=== PATIENT | male | born 1960 | race Caucasian/White ===

== ENCOUNTER 2023-03-09 07:49 | Outpatient (CLI) | payer OTHER, SELFPAY | END 2023-03-09 07:50 | disposition home or self-care (01) | LOC: WOUND 07:51 | PROVIDERS: PCP Family Medicine; Visit Provider Physician Assistant | DX: I87.2 Venous insufficiency (chronic) (peripheral) (principal); L97.318 Non-pressure chronic ulcer of right ankle with other specified severity; I50.22 Chronic systolic (congestive) heart failure; Z95.0 Presence of cardiac pacemaker | CPT/HCPCS: 97597; 97598; G0463 ==

== ENCOUNTER 2023-03-16 09:51 | Outpatient (CLI) | payer OTHER, SELFPAY | END 2023-03-16 09:52 | disposition home or self-care (01) | LOC: WOUND 09:51 | PROVIDERS: PCP Family Medicine; Visit Provider Nurse Practitioner Family | DX: G60.3 Idiopathic progressive neuropathy (principal); L97.312 Non-pressure chronic ulcer of right ankle with fat layer exposed; I87.2 Venous insufficiency (chronic) (peripheral) | CPT/HCPCS: 11042; 11045 ==

== ENCOUNTER 2023-03-18 15:01 | Outpatient (CLI) | payer OTHER, SELFPAY | END 2023-03-18 15:02 | disposition home or self-care (01) | LOC: WOUND 15:01 | PROVIDERS: PCP Family Medicine; Visit Provider Nurse Practitioner Family | DX: I87.2 Venous insufficiency (chronic) (peripheral) (principal); L97.318 Non-pressure chronic ulcer of right ankle with other specified severity | CPT/HCPCS: G0463 ==

== ENCOUNTER 2023-03-23 14:52 | Outpatient (CLI) | payer OTHER, SELFPAY | END 2023-03-23 14:53 | disposition home or self-care (01) | LOC: WOUND 14:52 | PROVIDERS: PCP Family Medicine; Visit Provider Physician Assistant | DX: G60.3 Idiopathic progressive neuropathy (principal); I87.2 Venous insufficiency (chronic) (peripheral); L97.318 Non-pressure chronic ulcer of right ankle with other specified severity | CPT/HCPCS: 97597; 97598 ==

== ENCOUNTER 2023-03-25 15:11 | Outpatient (CLI) | payer OTHER, SELFPAY | END 2023-03-25 15:12 | disposition home or self-care (01) | LOC: WOUND 15:11 | PROVIDERS: PCP Family Medicine; Visit Provider Nurse Practitioner Family | DX: G60.3 Idiopathic progressive neuropathy (principal); I87.2 Venous insufficiency (chronic) (peripheral); L97.312 Non-pressure chronic ulcer of right ankle with fat layer exposed | CPT/HCPCS: G0463 ==

== ENCOUNTER 2023-03-30 15:09 | Outpatient (CLI) | payer OTHER, SELFPAY | END 2023-03-30 15:10 | disposition home or self-care (01) | LOC: WOUND 15:09 | PROVIDERS: PCP Family Medicine; Visit Provider Nurse Practitioner Family | DX: G60.3 Idiopathic progressive neuropathy (principal); L97.312 Non-pressure chronic ulcer of right ankle with fat layer exposed; I87.2 Venous insufficiency (chronic) (peripheral) | CPT/HCPCS: 11042 ==

== ENCOUNTER 2023-04-06 13:51 | Outpatient (CLI) | payer OTHER, SELFPAY | END 2023-04-06 13:52 | disposition home or self-care (01) | LOC: WOUND 13:51 | PROVIDERS: PCP Family Medicine; Visit Provider Physician Assistant | DX: G60.3 Idiopathic progressive neuropathy (principal); L97.312 Non-pressure chronic ulcer of right ankle with fat layer exposed; I87.2 Venous insufficiency (chronic) (peripheral) | CPT/HCPCS: 11042 ==

== ENCOUNTER 2023-04-13 12:18 | Outpatient (CLI) | payer OTHER, SELFPAY | END 2023-04-13 12:19 | disposition home or self-care (01) | LOC: WOUND 12:18 | PROVIDERS: PCP Family Medicine; Visit Provider Nurse Practitioner Family | DX: G60.3 Idiopathic progressive neuropathy (principal); L97.312 Non-pressure chronic ulcer of right ankle with fat layer exposed; I87.2 Venous insufficiency (chronic) (peripheral) | CPT/HCPCS: 11042 ==

== ENCOUNTER 2023-04-20 09:56 | Outpatient (CLI) | payer OTHER, SELFPAY | END 2023-04-20 09:57 | disposition home or self-care (01) | PROVIDERS: PCP Family Medicine; Visit Provider Nurse Practitioner Family | DX: G60.3 Idiopathic progressive neuropathy (principal); L97.318 Non-pressure chronic ulcer of right ankle with other specified severity; I87.2 Venous insufficiency (chronic) (peripheral) | CPT/HCPCS: 11042 ==

== ENCOUNTER 2023-04-27 15:10 | Outpatient (CLI) | payer OTHER, SELFPAY | END 2023-04-27 15:11 | disposition home or self-care (01) | LOC: WOUND 15:10 | PROVIDERS: PCP Family Medicine; Visit Provider Nurse Practitioner Family | DX: G60.3 Idiopathic progressive neuropathy (principal); L97.312 Non-pressure chronic ulcer of right ankle with fat layer exposed; I87.2 Venous insufficiency (chronic) (peripheral) | CPT/HCPCS: 11042 ==

== ENCOUNTER 2023-05-04 10:16 | Outpatient (CLI) | payer OTHER, SELFPAY | END 2023-05-04 10:17 | disposition home or self-care (01) | LOC: WOUND 10:16 | PROVIDERS: PCP Family Medicine; Visit Provider Physician Assistant | DX: G60.3 Idiopathic progressive neuropathy (principal); I87.2 Venous insufficiency (chronic) (peripheral); L97.312 Non-pressure chronic ulcer of right ankle with fat layer exposed | CPT/HCPCS: 97597 ==

== ENCOUNTER 2023-05-11 08:47 | Outpatient (CLI) | payer OTHER, SELFPAY | END 2023-05-11 08:48 | disposition home or self-care (01) | LOC: WOUND 08:47 | PROVIDERS: PCP Family Medicine; Visit Provider Nurse Practitioner Family | DX: G60.3 Idiopathic progressive neuropathy (principal); I87.311 Chronic venous hypertension (idiopathic) with ulcer of right lower extremity; L97.318 Non-pressure chronic ulcer of right ankle with other specified severity | CPT/HCPCS: 11042 ==

== ENCOUNTER 2023-05-18 15:17 | Outpatient (CLI) | payer OTHER, SELFPAY | END 2023-05-18 15:18 | disposition home or self-care (01) | LOC: WOUND 15:17 | PROVIDERS: PCP Family Medicine; Visit Provider Nurse Practitioner Family | DX: I87.311 Chronic venous hypertension (idiopathic) with ulcer of right lower extremity (principal); I87.2 Venous insufficiency (chronic) (peripheral); L97.318 Non-pressure chronic ulcer of right ankle with other specified severity; G60.3 Idiopathic progressive neuropathy; S80.811A Abrasion, right lower leg, initial encounter; Z72.0 Tobacco use | CPT/HCPCS: 11042; 97602; G0463 ==

== ENCOUNTER 2023-05-25 10:30 | Outpatient (CLI) | payer OTHER, SELFPAY | END 2023-05-25 10:31 | disposition home or self-care (01) | LOC: WOUND 10:30 | PROVIDERS: PCP Family Medicine; Visit Provider Nurse Practitioner Family | DX: I87.311 Chronic venous hypertension (idiopathic) with ulcer of right lower extremity (principal); I87.2 Venous insufficiency (chronic) (peripheral); L97.318 Non-pressure chronic ulcer of right ankle with other specified severity; G60.3 Idiopathic progressive neuropathy | CPT/HCPCS: 11042 ==

== ENCOUNTER 2023-06-01 08:47 | Outpatient (CLI) | payer OTHER, SELFPAY | END 2023-06-01 08:48 | disposition home or self-care (01) | LOC: WOUND 08:47 | PROVIDERS: PCP Family Medicine; Visit Provider Nurse Practitioner Family | DX: I87.311 Chronic venous hypertension (idiopathic) with ulcer of right lower extremity (principal); I87.2 Venous insufficiency (chronic) (peripheral); L97.312 Non-pressure chronic ulcer of right ankle with fat layer exposed; S80.811A Abrasion, right lower leg, initial encounter | CPT/HCPCS: 11042; 97597 ==

== ENCOUNTER 2023-06-08 08:55 | Outpatient (CLI) | payer OTHER, SELFPAY | END 2023-06-08 08:56 | disposition home or self-care (01) | LOC: WOUND 08:55 | PROVIDERS: PCP Family Medicine; Visit Provider Nurse Practitioner Family | DX: I87.311 Chronic venous hypertension (idiopathic) with ulcer of right lower extremity (principal); I87.2 Venous insufficiency (chronic) (peripheral); L97.312 Non-pressure chronic ulcer of right ankle with fat layer exposed | CPT/HCPCS: 11042 ==

== ENCOUNTER 2023-06-15 11:06 | Outpatient (CLI) | payer OTHER, SELFPAY | END 2023-06-15 11:07 | disposition home or self-care (01) | LOC: WOUND 11:06 | PROVIDERS: PCP Family Medicine; Visit Provider Nurse Practitioner Family | DX: I87.311 Chronic venous hypertension (idiopathic) with ulcer of right lower extremity (principal); I87.2 Venous insufficiency (chronic) (peripheral); L97.312 Non-pressure chronic ulcer of right ankle with fat layer exposed; G60.3 Idiopathic progressive neuropathy; S91.311A Laceration without foreign body, right foot, initial encounter | CPT/HCPCS: 11042; G0463 ==

== ENCOUNTER 2023-06-22 11:05 | Outpatient (CLI) | payer OTHER, SELFPAY | END 2023-06-22 11:06 | disposition home or self-care (01) | LOC: WOUND 11:06 | PROVIDERS: PCP Family Medicine; Visit Provider Nurse Practitioner Family | DX: I87.311 Chronic venous hypertension (idiopathic) with ulcer of right lower extremity (principal); I87.2 Venous insufficiency (chronic) (peripheral); G60.3 Idiopathic progressive neuropathy; L97.312 Non-pressure chronic ulcer of right ankle with fat layer exposed | CPT/HCPCS: 11042 ==

== ENCOUNTER 2023-06-29 08:43 | Outpatient (CLI) | payer OTHER, SELFPAY | END 2023-06-29 08:44 | disposition home or self-care (01) | LOC: WOUND 08:44 | PROVIDERS: PCP Family Medicine; Visit Provider Nurse Practitioner Family | DX: I87.311 Chronic venous hypertension (idiopathic) with ulcer of right lower extremity (principal); I87.2 Venous insufficiency (chronic) (peripheral); L97.312 Non-pressure chronic ulcer of right ankle with fat layer exposed; G60.3 Idiopathic progressive neuropathy | CPT/HCPCS: 11042 ==

== ENCOUNTER 2023-07-06 07:47 | Outpatient (CLI) | payer OTHER, SELFPAY | END 2023-07-06 07:48 | disposition home or self-care (01) | LOC: WOUND 07:47 | PROVIDERS: PCP Family Medicine; Visit Provider Family Medicine | DX: I87.311 Chronic venous hypertension (idiopathic) with ulcer of right lower extremity (principal); I87.2 Venous insufficiency (chronic) (peripheral); L97.312 Non-pressure chronic ulcer of right ankle with fat layer exposed | CPT/HCPCS: 11042 ==

== ENCOUNTER 2023-07-13 08:04 | Outpatient (CLI) | payer OTHER, SELFPAY | END 2023-07-13 08:05 | disposition home or self-care (01) | LOC: WOUND 08:04 | PROVIDERS: PCP Family Medicine; Visit Provider Nurse Practitioner Family | DX: I87.311 Chronic venous hypertension (idiopathic) with ulcer of right lower extremity (principal); I87.2 Venous insufficiency (chronic) (peripheral); L97.312 Non-pressure chronic ulcer of right ankle with fat layer exposed | CPT/HCPCS: 11042 ==

== ENCOUNTER 2023-07-20 08:12 | Outpatient (CLI) | payer OTHER, SELFPAY | END 2023-07-20 08:13 | disposition home or self-care (01) | LOC: WOUND 08:12 | PROVIDERS: PCP Family Medicine; Visit Provider Nurse Practitioner Family | DX: I87.311 Chronic venous hypertension (idiopathic) with ulcer of right lower extremity (principal); I87.2 Venous insufficiency (chronic) (peripheral); L97.312 Non-pressure chronic ulcer of right ankle with fat layer exposed | CPT/HCPCS: 11042 ==

== ENCOUNTER 2023-07-27 08:15 | Outpatient (CLI) | payer OTHER, SELFPAY | END 2023-07-27 08:16 | disposition home or self-care (01) | LOC: WOUND 08:15 | PROVIDERS: PCP Family Medicine; Visit Provider Nurse Practitioner Family | DX: I87.311 Chronic venous hypertension (idiopathic) with ulcer of right lower extremity (principal); I87.2 Venous insufficiency (chronic) (peripheral); L97.312 Non-pressure chronic ulcer of right ankle with fat layer exposed | CPT/HCPCS: 11042 ==

== ENCOUNTER 2023-08-03 08:00 | Outpatient (CLI) | payer OTHER, SELFPAY | END 2023-08-03 08:01 | disposition home or self-care (01) | LOC: WOUND 08:00 | PROVIDERS: PCP Family Medicine; Visit Provider Nurse Practitioner Family | DX: I87.311 Chronic venous hypertension (idiopathic) with ulcer of right lower extremity (principal); I87.2 Venous insufficiency (chronic) (peripheral); L97.312 Non-pressure chronic ulcer of right ankle with fat layer exposed | CPT/HCPCS: 11042 ==

== ENCOUNTER 2023-08-10 08:17 | Outpatient (CLI) | payer OTHER, SELFPAY | END 2023-08-10 08:18 | disposition home or self-care (01) | LOC: WOUND 08:17 | PROVIDERS: PCP Family Medicine; Visit Provider Nurse Practitioner Family | DX: I87.311 Chronic venous hypertension (idiopathic) with ulcer of right lower extremity (principal); I87.2 Venous insufficiency (chronic) (peripheral); G60.3 Idiopathic progressive neuropathy; L97.312 Non-pressure chronic ulcer of right ankle with fat layer exposed | CPT/HCPCS: 11042 ==

== ENCOUNTER 2023-08-17 08:22 | Outpatient (CLI) | payer OTHER, SELFPAY | END 2023-08-17 08:23 | disposition home or self-care (01) | LOC: WOUND 08:22 | PROVIDERS: PCP Family Medicine; Visit Provider Nurse Practitioner Family | DX: I87.311 Chronic venous hypertension (idiopathic) with ulcer of right lower extremity (principal); I87.2 Venous insufficiency (chronic) (peripheral); L97.312 Non-pressure chronic ulcer of right ankle with fat layer exposed | CPT/HCPCS: 11042 ==

== ENCOUNTER 2023-08-24 08:13 | Outpatient (CLI) | payer OTHER, SELFPAY | END 2023-08-24 08:14 | disposition home or self-care (01) | LOC: WOUND 08:13 | PROVIDERS: PCP Family Medicine; Visit Provider Nurse Practitioner Family | DX: I87.311 Chronic venous hypertension (idiopathic) with ulcer of right lower extremity (principal); I87.2 Venous insufficiency (chronic) (peripheral); L97.312 Non-pressure chronic ulcer of right ankle with fat layer exposed | CPT/HCPCS: 97597 ==

== ENCOUNTER 2023-08-31 08:14 | Outpatient (CLI) | payer OTHER, SELFPAY | END 2023-08-31 08:15 | disposition home or self-care (01) | LOC: WOUND 08:14 | PROVIDERS: PCP Family Medicine; Visit Provider Nurse Practitioner Family | DX: I87.311 Chronic venous hypertension (idiopathic) with ulcer of right lower extremity (principal); I87.2 Venous insufficiency (chronic) (peripheral); L97.312 Non-pressure chronic ulcer of right ankle with fat layer exposed | CPT/HCPCS: 97597 ==

== ENCOUNTER 2023-09-07 08:11 | Outpatient (CLI) | payer OTHER, SELFPAY | END 2023-09-07 08:12 | disposition home or self-care (01) | LOC: WOUND 08:11 | PROVIDERS: PCP Family Medicine; Visit Provider Nurse Practitioner Family | DX: I87.311 Chronic venous hypertension (idiopathic) with ulcer of right lower extremity (principal); I87.2 Venous insufficiency (chronic) (peripheral); L97.312 Non-pressure chronic ulcer of right ankle with fat layer exposed; G60.3 Idiopathic progressive neuropathy | CPT/HCPCS: 11042 ==

== ENCOUNTER 2023-09-14 08:14 | Outpatient (CLI) | payer OTHER, SELFPAY | END 2023-09-14 08:15 | disposition home or self-care (01) | LOC: WOUND 08:14 | PROVIDERS: PCP Family Medicine; Visit Provider Nurse Practitioner Family | DX: I87.311 Chronic venous hypertension (idiopathic) with ulcer of right lower extremity (principal); I87.2 Venous insufficiency (chronic) (peripheral); L97.312 Non-pressure chronic ulcer of right ankle with fat layer exposed | CPT/HCPCS: 11042 ==

== ENCOUNTER 2023-09-21 08:15 | Outpatient (CLI) | payer OTHER, SELFPAY | END 2023-09-21 08:16 | disposition home or self-care (01) | LOC: WOUND 08:15 | PROVIDERS: PCP Family Medicine; Visit Provider Physician Assistant Surgical | DX: I87.311 Chronic venous hypertension (idiopathic) with ulcer of right lower extremity (principal); I87.2 Venous insufficiency (chronic) (peripheral); L97.312 Non-pressure chronic ulcer of right ankle with fat layer exposed | CPT/HCPCS: 11042 ==

== ENCOUNTER 2023-09-28 09:01 | Outpatient (CLI) | payer OTHER, SELFPAY | END 2023-09-28 09:02 | disposition home or self-care (01) | LOC: WOUND 09:01 | PROVIDERS: PCP Family Medicine; Visit Provider Nurse Practitioner Family | DX: I87.311 Chronic venous hypertension (idiopathic) with ulcer of right lower extremity (principal); I87.2 Venous insufficiency (chronic) (peripheral); L97.312 Non-pressure chronic ulcer of right ankle with fat layer exposed | CPT/HCPCS: 11042 ==

== ENCOUNTER 2023-10-05 08:10 | Outpatient (CLI) | payer OTHER, SELFPAY | END 2023-10-05 08:11 | disposition home or self-care (01) | LOC: WOUND 08:10 | PROVIDERS: PCP Family Medicine; Visit Provider Nurse Practitioner Family | DX: I87.311 Chronic venous hypertension (idiopathic) with ulcer of right lower extremity (principal); I87.2 Venous insufficiency (chronic) (peripheral); L97.318 Non-pressure chronic ulcer of right ankle with other specified severity | CPT/HCPCS: 11042 ==

== ENCOUNTER 2023-10-12 08:16 | Outpatient (CLI) | payer OTHER, SELFPAY | END 2023-10-12 08:17 | disposition home or self-care (01) | LOC: WOUND 08:16 | PROVIDERS: PCP Family Medicine; Visit Provider Nurse Practitioner Family | DX: I87.311 Chronic venous hypertension (idiopathic) with ulcer of right lower extremity (principal); I87.2 Venous insufficiency (chronic) (peripheral); L97.312 Non-pressure chronic ulcer of right ankle with fat layer exposed | CPT/HCPCS: 11042 ==

== ENCOUNTER 2023-10-19 08:16 | Outpatient (CLI) | payer OTHER, SELFPAY | END 2023-10-19 08:17 | disposition home or self-care (01) | LOC: WOUND 08:16 | PROVIDERS: PCP Family Medicine; Visit Provider Nurse Practitioner Family | DX: I87.311 Chronic venous hypertension (idiopathic) with ulcer of right lower extremity (principal); I87.2 Venous insufficiency (chronic) (peripheral); L97.312 Non-pressure chronic ulcer of right ankle with fat layer exposed | CPT/HCPCS: 11042 ==

== ENCOUNTER 2023-10-26 08:11 | Outpatient (CLI) | payer OTHER, SELFPAY | END 2023-10-26 08:12 | disposition home or self-care (01) | LOC: WOUND 08:11 | PROVIDERS: PCP Family Medicine; Visit Provider Nurse Practitioner Family | DX: I87.311 Chronic venous hypertension (idiopathic) with ulcer of right lower extremity (principal); I87.2 Venous insufficiency (chronic) (peripheral); L97.312 Non-pressure chronic ulcer of right ankle with fat layer exposed | CPT/HCPCS: 97597 ==

== ENCOUNTER 2023-11-02 08:15 | Outpatient (CLI) | payer OTHER, SELFPAY | END 2023-11-02 08:16 | disposition home or self-care (01) | LOC: WOUND 08:15 | PROVIDERS: PCP Family Medicine; Visit Provider Nurse Practitioner Family | DX: I87.311 Chronic venous hypertension (idiopathic) with ulcer of right lower extremity (principal); I87.2 Venous insufficiency (chronic) (peripheral); L97.312 Non-pressure chronic ulcer of right ankle with fat layer exposed | CPT/HCPCS: 11042 ==

== ENCOUNTER 2023-11-09 08:09 | Outpatient (CLI) | payer OTHER, MEDICARE, BC, SELFPAY | END 2023-11-09 08:10 | disposition home or self-care (01) | PROVIDERS: PCP Family Medicine; Visit Provider Nurse Practitioner Family | DX: I87.311 Chronic venous hypertension (idiopathic) with ulcer of right lower extremity (principal); I87.2 Venous insufficiency (chronic) (peripheral); L97.312 Non-pressure chronic ulcer of right ankle with fat layer exposed | CPT/HCPCS: 11042 ==

== ENCOUNTER 2023-11-16 08:18 | Outpatient (CLI) | payer MEDICARE, BC, SELFPAY | END 2023-11-16 08:19 | disposition home or self-care (01) | LOC: WOUND 08:18 | PROVIDERS: PCP Family Medicine; Visit Provider Nurse Practitioner Family | DX: I87.311 Chronic venous hypertension (idiopathic) with ulcer of right lower extremity (principal); I87.2 Venous insufficiency (chronic) (peripheral); L97.312 Non-pressure chronic ulcer of right ankle with fat layer exposed; G60.3 Idiopathic progressive neuropathy | CPT/HCPCS: 11042 ==

== ENCOUNTER 2023-11-30 08:19 | Outpatient (CLI) | payer OTHER, MEDICARE, BC, SELFPAY | END 2023-11-30 08:20 | disposition home or self-care (01) | LOC: WOUND 08:19 | PROVIDERS: PCP Family Medicine; Visit Provider Nurse Practitioner Family | DX: I87.311 Chronic venous hypertension (idiopathic) with ulcer of right lower extremity (principal); I87.2 Venous insufficiency (chronic) (peripheral); L97.312 Non-pressure chronic ulcer of right ankle with fat layer exposed; G60.3 Idiopathic progressive neuropathy | CPT/HCPCS: 11042 ==

== ENCOUNTER 2023-12-07 08:16 | Outpatient (CLI) | payer MEDICARE, BC, SELFPAY | END 2023-12-07 08:17 | disposition home or self-care (01) | LOC: WOUND 08:16 | PROVIDERS: PCP Family Medicine; Visit Provider Nurse Practitioner Family | DX: I87.311 Chronic venous hypertension (idiopathic) with ulcer of right lower extremity (principal); I87.2 Venous insufficiency (chronic) (peripheral); L97.312 Non-pressure chronic ulcer of right ankle with fat layer exposed | CPT/HCPCS: 11042 ==

== ENCOUNTER 2023-12-14 08:18 | Outpatient (CLI) | payer OTHER, MEDICARE, BC, SELFPAY | END 2023-12-14 08:19 | disposition home or self-care (01) | LOC: WOUND 08:18 | PROVIDERS: PCP Family Medicine; Visit Provider Nurse Practitioner Family | DX: I87.311 Chronic venous hypertension (idiopathic) with ulcer of right lower extremity (principal); I87.2 Venous insufficiency (chronic) (peripheral); L97.312 Non-pressure chronic ulcer of right ankle with fat layer exposed | CPT/HCPCS: 11042 ==

== ENCOUNTER 2023-12-21 08:16 | Outpatient (CLI) | payer MEDICARE, BC, SELFPAY | END 2023-12-21 08:17 | disposition home or self-care (01) | LOC: WOUND 08:16 | PROVIDERS: PCP Family Medicine; Visit Provider Family Medicine | DX: I87.311 Chronic venous hypertension (idiopathic) with ulcer of right lower extremity (principal); I87.2 Venous insufficiency (chronic) (peripheral); L97.312 Non-pressure chronic ulcer of right ankle with fat layer exposed; G60.3 Idiopathic progressive neuropathy | CPT/HCPCS: 11042 ==

== ENCOUNTER 2023-12-28 08:19 | Outpatient (CLI) | payer MEDICARE, BC, SELFPAY | END 2023-12-28 08:20 | disposition home or self-care (01) | LOC: WOUND 08:19 | PROVIDERS: PCP Family Medicine; Visit Provider Nurse Practitioner Family | DX: I87.311 Chronic venous hypertension (idiopathic) with ulcer of right lower extremity (principal); I87.2 Venous insufficiency (chronic) (peripheral); L97.312 Non-pressure chronic ulcer of right ankle with fat layer exposed; G60.3 Idiopathic progressive neuropathy | CPT/HCPCS: 11042 ==

== ENCOUNTER 2024-01-04 08:11 | Outpatient (CLI) | payer MEDICARE, BC, SELFPAY | END 2024-01-04 08:12 | disposition home or self-care (01) | LOC: WOUND 08:12 | PROVIDERS: PCP Family Medicine; Visit Provider Nurse Practitioner Family | DX: I87.311 Chronic venous hypertension (idiopathic) with ulcer of right lower extremity (principal); I87.2 Venous insufficiency (chronic) (peripheral); L97.312 Non-pressure chronic ulcer of right ankle with fat layer exposed; G60.3 Idiopathic progressive neuropathy; Z96.41 Presence of insulin pump (external) (internal) | CPT/HCPCS: 97597 ==

== ENCOUNTER 2024-01-11 08:11 | Outpatient (CLI) | payer MEDICARE, BC, SELFPAY | END 2024-01-11 08:12 | disposition home or self-care (01) | LOC: WOUND 08:11 | PROVIDERS: PCP Family Medicine; Visit Provider Nurse Practitioner Family | DX: I87.311 Chronic venous hypertension (idiopathic) with ulcer of right lower extremity (principal); I87.2 Venous insufficiency (chronic) (peripheral); L97.312 Non-pressure chronic ulcer of right ankle with fat layer exposed | CPT/HCPCS: 11042 ==

== ENCOUNTER 2024-01-18 08:16 | Outpatient (CLI) | payer MEDICARE, BC, SELFPAY | END 2024-01-18 08:17 | disposition home or self-care (01) | PROVIDERS: PCP Family Medicine; Visit Provider Nurse Practitioner Family | DX: I87.311 Chronic venous hypertension (idiopathic) with ulcer of right lower extremity (principal); I87.2 Venous insufficiency (chronic) (peripheral); L97.318 Non-pressure chronic ulcer of right ankle with other specified severity; S91.154A Open bite of right lesser toe(s) without damage to nail, initial encounter; W55.81XA Bitten by other mammals, initial encounter | CPT/HCPCS: 15271; 97602; G0463; Q4101 ==

== ENCOUNTER 2024-01-25 08:10 | Outpatient (CLI) | payer MEDICARE, BC, SELFPAY | END 2024-01-25 08:11 | disposition home or self-care (01) | LOC: WOUND 08:10 | PROVIDERS: PCP Family Medicine; Visit Provider Nurse Practitioner Family | DX: I87.311 Chronic venous hypertension (idiopathic) with ulcer of right lower extremity (principal); I87.2 Venous insufficiency (chronic) (peripheral); L97.312 Non-pressure chronic ulcer of right ankle with fat layer exposed | CPT/HCPCS: 11042 ==

== ENCOUNTER 2024-02-07 08:18 | Outpatient (CLI) | payer MEDICARE, BC, SELFPAY | END 2024-02-07 08:19 | disposition home or self-care (01) | LOC: WOUND 08:18 | PROVIDERS: PCP Family Medicine; Visit Provider Physician Assistant Surgical | DX: I87.311 Chronic venous hypertension (idiopathic) with ulcer of right lower extremity (principal); I87.2 Venous insufficiency (chronic) (peripheral); L97.312 Non-pressure chronic ulcer of right ankle with fat layer exposed | CPT/HCPCS: 11042 ==

== ENCOUNTER 2024-02-15 08:10 | Outpatient (CLI) | payer MEDICARE, BC, SELFPAY | END 2024-02-15 08:11 | disposition home or self-care (01) | LOC: WOUND 08:11 | PROVIDERS: PCP Family Medicine; Visit Provider Nurse Practitioner Family | DX: I87.311 Chronic venous hypertension (idiopathic) with ulcer of right lower extremity (principal); I87.2 Venous insufficiency (chronic) (peripheral); L97.312 Non-pressure chronic ulcer of right ankle with fat layer exposed; G60.3 Idiopathic progressive neuropathy | CPT/HCPCS: 11042 ==

== ENCOUNTER 2024-02-22 08:07 | Outpatient (CLI) | payer MEDICARE, BC, SELFPAY | END 2024-02-22 08:08 | disposition home or self-care (01) | LOC: WOUND 08:07 | PROVIDERS: PCP Family Medicine; Visit Provider Nurse Practitioner Family | DX: I87.311 Chronic venous hypertension (idiopathic) with ulcer of right lower extremity (principal); I87.2 Venous insufficiency (chronic) (peripheral); L97.318 Non-pressure chronic ulcer of right ankle with other specified severity | CPT/HCPCS: 11042 ==

== ENCOUNTER 2024-02-29 12:39 | Outpatient (CLI) | payer MEDICARE, BC, SELFPAY | END 2024-02-29 12:40 | disposition home or self-care (01) | LOC: WOUND 12:39 | PROVIDERS: PCP Family Medicine; Visit Provider Nurse Practitioner Family | DX: I87.311 Chronic venous hypertension (idiopathic) with ulcer of right lower extremity (principal); I87.2 Venous insufficiency (chronic) (peripheral); L97.312 Non-pressure chronic ulcer of right ankle with fat layer exposed; G60.3 Idiopathic progressive neuropathy | CPT/HCPCS: 11042 ==

== ENCOUNTER 2024-03-07 08:08 | Outpatient (CLI) | payer MEDICARE, BC, SELFPAY | END 2024-03-07 08:09 | disposition home or self-care (01) | PROVIDERS: PCP Family Medicine; Visit Provider Nurse Practitioner Family | DX: I87.311 Chronic venous hypertension (idiopathic) with ulcer of right lower extremity (principal); I87.2 Venous insufficiency (chronic) (peripheral); L97.318 Non-pressure chronic ulcer of right ankle with other specified severity; S91.154A Open bite of right lesser toe(s) without damage to nail, initial encounter; W55.81XA Bitten by other mammals, initial encounter | CPT/HCPCS: 15271; 97597; G0463; Q4151 ==

== ENCOUNTER 2024-03-14 08:12 | Outpatient (CLI) | payer MEDICARE, BC, SELFPAY | END 2024-03-14 08:13 | disposition home or self-care (01) | LOC: WOUND 08:12 | PROVIDERS: PCP Family Medicine; Visit Provider Nurse Practitioner Family | DX: I87.311 Chronic venous hypertension (idiopathic) with ulcer of right lower extremity (principal); I87.2 Venous insufficiency (chronic) (peripheral); L97.318 Non-pressure chronic ulcer of right ankle with other specified severity; S91.154A Open bite of right lesser toe(s) without damage to nail, initial encounter; W55.81XA Bitten by other mammals, initial encounter | CPT/HCPCS: 97597 ==

== ENCOUNTER 2024-03-21 08:15 | Outpatient (CLI) | payer MEDICARE, BC, SELFPAY | END 2024-03-21 08:16 | disposition home or self-care (01) | LOC: WOUND 08:15 | PROVIDERS: PCP Family Medicine; Visit Provider Nurse Practitioner Family | DX: I87.311 Chronic venous hypertension (idiopathic) with ulcer of right lower extremity (principal); I87.2 Venous insufficiency (chronic) (peripheral); L97.312 Non-pressure chronic ulcer of right ankle with fat layer exposed; S91.154A Open bite of right lesser toe(s) without damage to nail, initial encounter; W55.81XA Bitten by other mammals, initial encounter | CPT/HCPCS: 97597 ==

== ENCOUNTER 2024-03-28 08:25 | Outpatient (CLI) | payer MEDICARE, BC, SELFPAY | END 2024-03-28 08:26 | disposition home or self-care (01) | LOC: WOUND 08:25 | PROVIDERS: PCP Family Medicine; Visit Provider Nurse Practitioner Family | DX: I87.311 Chronic venous hypertension (idiopathic) with ulcer of right lower extremity (principal); I87.2 Venous insufficiency (chronic) (peripheral); L97.318 Non-pressure chronic ulcer of right ankle with other specified severity; S91.154A Open bite of right lesser toe(s) without damage to nail, initial encounter; W55.81XA Bitten by other mammals, initial encounter | CPT/HCPCS: 97597 ==

== ENCOUNTER 2024-04-04 08:08 | Outpatient (CLI) | payer MEDICARE, BC, SELFPAY | END 2024-04-04 08:09 | disposition home or self-care (01) | LOC: WOUND 08:08 | PROVIDERS: PCP Family Medicine; Visit Provider Nurse Practitioner Family | DX: I87.311 Chronic venous hypertension (idiopathic) with ulcer of right lower extremity (principal); I87.2 Venous insufficiency (chronic) (peripheral); L97.318 Non-pressure chronic ulcer of right ankle with other specified severity; S91.154A Open bite of right lesser toe(s) without damage to nail, initial encounter; W55.81XA Bitten by other mammals, initial encounter | CPT/HCPCS: 97597; 97602 ==

== ENCOUNTER 2024-04-11 08:14 | Outpatient (CLI) | payer MEDICARE, BC, SELFPAY | END 2024-04-11 08:15 | disposition home or self-care (01) | LOC: WOUND 08:14 | PROVIDERS: PCP Family Medicine; Visit Provider Nurse Practitioner Family | DX: I87.311 Chronic venous hypertension (idiopathic) with ulcer of right lower extremity (principal); I87.2 Venous insufficiency (chronic) (peripheral); L97.312 Non-pressure chronic ulcer of right ankle with fat layer exposed | CPT/HCPCS: 97597 ==

== ENCOUNTER 2024-04-18 08:14 | Outpatient (CLI) | payer MEDICARE, BC, SELFPAY | END 2024-04-18 08:15 | disposition home or self-care (01) | PROVIDERS: PCP Family Medicine; Visit Provider Nurse Practitioner Family | DX: I87.311 Chronic venous hypertension (idiopathic) with ulcer of right lower extremity (principal); I87.2 Venous insufficiency (chronic) (peripheral); L97.312 Non-pressure chronic ulcer of right ankle with fat layer exposed | CPT/HCPCS: 97597 ==

== ENCOUNTER 2024-04-25 08:15 | Outpatient (CLI) | payer MEDICARE, BC, SELFPAY | END 2024-04-25 08:16 | disposition home or self-care (01) | LOC: WOUND 08:16 | PROVIDERS: PCP Family Medicine; Visit Provider Nurse Practitioner Family | DX: I87.311 Chronic venous hypertension (idiopathic) with ulcer of right lower extremity (principal); I87.2 Venous insufficiency (chronic) (peripheral); G60.3 Idiopathic progressive neuropathy; L97.312 Non-pressure chronic ulcer of right ankle with fat layer exposed; S81.811A Laceration without foreign body, right lower leg, initial encounter | CPT/HCPCS: 97597; G0463 ==

== ENCOUNTER 2024-05-02 08:08 | Outpatient (CLI) | payer MEDICARE, BC, SELFPAY | END 2024-05-02 08:09 | disposition home or self-care (01) | LOC: WOUND 08:09 | PROVIDERS: PCP Family Medicine; Visit Provider Nurse Practitioner Family | DX: I87.311 Chronic venous hypertension (idiopathic) with ulcer of right lower extremity (principal); I87.2 Venous insufficiency (chronic) (peripheral); G60.3 Idiopathic progressive neuropathy; L97.312 Non-pressure chronic ulcer of right ankle with fat layer exposed | CPT/HCPCS: 11042 ==

== ENCOUNTER 2024-05-09 08:15 | Outpatient (CLI) | payer MEDICARE, BC, SELFPAY | END 2024-05-09 08:16 | disposition home or self-care (01) | LOC: WOUND 08:15 | PROVIDERS: PCP Family Medicine; Visit Provider Family Medicine | DX: I87.311 Chronic venous hypertension (idiopathic) with ulcer of right lower extremity (principal); I87.2 Venous insufficiency (chronic) (peripheral); G60.3 Idiopathic progressive neuropathy; L97.312 Non-pressure chronic ulcer of right ankle with fat layer exposed | CPT/HCPCS: 11042 ==

== ENCOUNTER 2024-05-16 08:11 | Outpatient (CLI) | payer MEDICARE, BC, SELFPAY | END 2024-05-16 08:12 | disposition home or self-care (01) | LOC: WOUND 08:11 | PROVIDERS: PCP Family Medicine; Visit Provider Nurse Practitioner Family | DX: I87.311 Chronic venous hypertension (idiopathic) with ulcer of right lower extremity (principal); I87.2 Venous insufficiency (chronic) (peripheral); I70.233 Atherosclerosis of native arteries of right leg with ulceration of ankle; L97.312 Non-pressure chronic ulcer of right ankle with fat layer exposed; G60.3 Idiopathic progressive neuropathy; I89.0 Lymphedema, not elsewhere classified; Z72.0 Tobacco use | CPT/HCPCS: 97597 ==

== ENCOUNTER 2024-05-23 08:16 | Outpatient (CLI) | payer MEDICARE, BC, SELFPAY | END 2024-05-23 08:17 | disposition home or self-care (01) | LOC: WOUND 08:16 | PROVIDERS: PCP Family Medicine; Visit Provider Nurse Practitioner Family | DX: I87.311 Chronic venous hypertension (idiopathic) with ulcer of right lower extremity (principal); I87.2 Venous insufficiency (chronic) (peripheral); I89.0 Lymphedema, not elsewhere classified; G60.3 Idiopathic progressive neuropathy; L97.312 Non-pressure chronic ulcer of right ankle with fat layer exposed | CPT/HCPCS: 11042 ==

== ENCOUNTER 2024-05-30 08:16 | Outpatient (CLI) | payer MEDICARE, BC, SELFPAY | END 2024-05-30 08:17 | disposition home or self-care (01) | LOC: WOUND 08:16 | PROVIDERS: PCP Family Medicine; Visit Provider Physician Assistant | DX: I87.311 Chronic venous hypertension (idiopathic) with ulcer of right lower extremity (principal); I87.2 Venous insufficiency (chronic) (peripheral); I89.0 Lymphedema, not elsewhere classified; L97.312 Non-pressure chronic ulcer of right ankle with fat layer exposed | CPT/HCPCS: 97597 ==

== ENCOUNTER 2024-06-06 08:19 | Outpatient (CLI) | payer MEDICARE, BC, SELFPAY | END 2024-06-06 08:20 | disposition home or self-care (01) | LOC: WOUND 08:19 | PROVIDERS: PCP Family Medicine; Visit Provider Physician Assistant | DX: I87.311 Chronic venous hypertension (idiopathic) with ulcer of right lower extremity (principal); I87.2 Venous insufficiency (chronic) (peripheral); I89.0 Lymphedema, not elsewhere classified; L97.312 Non-pressure chronic ulcer of right ankle with fat layer exposed; G60.3 Idiopathic progressive neuropathy; Z72.0 Tobacco use | CPT/HCPCS: 97597 ==

== ENCOUNTER 2024-06-13 08:10 | Outpatient (CLI) | payer MEDICARE, BC, SELFPAY | END 2024-06-13 08:11 | disposition home or self-care (01) | LOC: WOUND 08:11 | PROVIDERS: PCP Family Medicine; Visit Provider Nurse Practitioner Family | DX: I87.311 Chronic venous hypertension (idiopathic) with ulcer of right lower extremity (principal); I87.2 Venous insufficiency (chronic) (peripheral); I89.0 Lymphedema, not elsewhere classified; G60.3 Idiopathic progressive neuropathy; L97.312 Non-pressure chronic ulcer of right ankle with fat layer exposed; Z72.0 Tobacco use | CPT/HCPCS: 11042 ==

== ENCOUNTER 2024-06-20 08:11 | Outpatient (CLI) | payer MEDICARE, BC, SELFPAY | END 2024-06-20 08:12 | disposition home or self-care (01) | LOC: WOUND 08:11 | PROVIDERS: PCP Family Medicine; Visit Provider Physician Assistant | DX: I87.311 Chronic venous hypertension (idiopathic) with ulcer of right lower extremity (principal); I87.2 Venous insufficiency (chronic) (peripheral); I70.233 Atherosclerosis of native arteries of right leg with ulceration of ankle; I89.0 Lymphedema, not elsewhere classified; L97.312 Non-pressure chronic ulcer of right ankle with fat layer exposed; Z72.0 Tobacco use | CPT/HCPCS: 97597 ==

== ENCOUNTER 2024-06-27 08:17 | Outpatient (CLI) | payer MEDICARE, BC, SELFPAY | END 2024-06-27 08:18 | disposition home or self-care (01) | LOC: WOUND 08:18 | PROVIDERS: PCP Family Medicine; Visit Provider Nurse Practitioner Family | DX: I87.311 Chronic venous hypertension (idiopathic) with ulcer of right lower extremity (principal); I87.2 Venous insufficiency (chronic) (peripheral); I89.0 Lymphedema, not elsewhere classified; L97.312 Non-pressure chronic ulcer of right ankle with fat layer exposed; Z72.0 Tobacco use | CPT/HCPCS: 97597 ==

== ENCOUNTER 2024-07-04 08:13 | Outpatient (CLI) | payer MEDICARE, BC, SELFPAY | END 2024-07-04 08:14 | disposition home or self-care (01) | LOC: WOUND 08:14 | PROVIDERS: PCP Family Medicine; Visit Provider Family Medicine | DX: I87.311 Chronic venous hypertension (idiopathic) with ulcer of right lower extremity (principal); I87.2 Venous insufficiency (chronic) (peripheral); I89.0 Lymphedema, not elsewhere classified; G60.3 Idiopathic progressive neuropathy; L97.312 Non-pressure chronic ulcer of right ankle with fat layer exposed; Z72.0 Tobacco use | CPT/HCPCS: 11042 ==

== ENCOUNTER 2024-07-11 08:11 | Outpatient (CLI) | payer MEDICARE, BC, SELFPAY | END 2024-07-11 08:12 | disposition home or self-care (01) | LOC: WOUND 08:12 | PROVIDERS: PCP Family Medicine; Visit Provider Nurse Practitioner Family | DX: I87.311 Chronic venous hypertension (idiopathic) with ulcer of right lower extremity (principal); I87.2 Venous insufficiency (chronic) (peripheral); I89.0 Lymphedema, not elsewhere classified; G60.3 Idiopathic progressive neuropathy; L97.312 Non-pressure chronic ulcer of right ankle with fat layer exposed | CPT/HCPCS: 97597 ==

== ENCOUNTER 2024-07-25 08:12 | Outpatient (CLI) | payer MEDICARE, BC, SELFPAY | END 2024-07-25 08:13 | disposition home or self-care (01) | LOC: WOUND 08:12 | PROVIDERS: PCP Family Medicine; Visit Provider Nurse Practitioner Family | DX: I87.311 Chronic venous hypertension (idiopathic) with ulcer of right lower extremity (principal); I87.2 Venous insufficiency (chronic) (peripheral); I89.0 Lymphedema, not elsewhere classified; G60.3 Idiopathic progressive neuropathy; L97.312 Non-pressure chronic ulcer of right ankle with fat layer exposed; Z72.0 Tobacco use | CPT/HCPCS: 11042 ==

== ENCOUNTER 2024-08-01 08:10 | Outpatient (CLI) | payer MEDICARE, BC, SELFPAY | END 2024-08-01 08:11 | disposition home or self-care (01) | LOC: WOUND 08:11 | PROVIDERS: PCP Family Medicine; Visit Provider Physician Assistant | DX: I87.311 Chronic venous hypertension (idiopathic) with ulcer of right lower extremity (principal); I87.2 Venous insufficiency (chronic) (peripheral); I89.0 Lymphedema, not elsewhere classified; G60.3 Idiopathic progressive neuropathy; L97.312 Non-pressure chronic ulcer of right ankle with fat layer exposed | CPT/HCPCS: 97597 ==

== ENCOUNTER 2024-08-08 08:11 | Outpatient (CLI) | payer MEDICARE, BC, SELFPAY | END 2024-08-08 08:12 | disposition home or self-care (01) | LOC: WOUND 08:12 | PROVIDERS: PCP Family Medicine; Visit Provider Physician Assistant | DX: I87.311 Chronic venous hypertension (idiopathic) with ulcer of right lower extremity (principal); I87.2 Venous insufficiency (chronic) (peripheral); G60.3 Idiopathic progressive neuropathy; I89.0 Lymphedema, not elsewhere classified; L97.312 Non-pressure chronic ulcer of right ankle with fat layer exposed | CPT/HCPCS: 97597; G0463 ==

== ENCOUNTER 2024-08-15 08:02 | Outpatient (CLI) | payer MEDICARE, BC, SELFPAY | END 2024-08-15 08:03 | disposition home or self-care (01) | LOC: WOUND 08:02 | PROVIDERS: PCP Family Medicine; Visit Provider Nurse Practitioner Family | DX: I87.311 Chronic venous hypertension (idiopathic) with ulcer of right lower extremity (principal); I87.2 Venous insufficiency (chronic) (peripheral); I89.0 Lymphedema, not elsewhere classified; G60.3 Idiopathic progressive neuropathy; L97.312 Non-pressure chronic ulcer of right ankle with fat layer exposed; Z72.0 Tobacco use | CPT/HCPCS: 15271; 15275; Q4151 ==

== ENCOUNTER 2024-08-22 08:11 | Outpatient (CLI) | payer MEDICARE, BC, SELFPAY | END 2024-08-22 08:12 | disposition home or self-care (01) | LOC: WOUND 08:11 | PROVIDERS: PCP Family Medicine; Visit Provider Nurse Practitioner Family | DX: I87.311 Chronic venous hypertension (idiopathic) with ulcer of right lower extremity (principal); I87.2 Venous insufficiency (chronic) (peripheral); I70.233 Atherosclerosis of native arteries of right leg with ulceration of ankle; I89.0 Lymphedema, not elsewhere classified; G60.3 Idiopathic progressive neuropathy; L97.312 Non-pressure chronic ulcer of right ankle with fat layer exposed; S91.102A Unspecified open wound of left great toe without damage to nail, initial encounter; Z72.0 Tobacco use | CPT/HCPCS: G0463 ==

== ENCOUNTER 2024-08-31 10:33 | Outpatient (CLI) | payer MEDICARE, BC, SELFPAY | END 2024-08-31 10:34 | disposition home or self-care (01) | LOC: WOUND 10:33 | PROVIDERS: PCP Family Medicine; Visit Provider Nurse Practitioner Family | DX: I87.311 Chronic venous hypertension (idiopathic) with ulcer of right lower extremity (principal); I87.2 Venous insufficiency (chronic) (peripheral); I89.0 Lymphedema, not elsewhere classified; G60.3 Idiopathic progressive neuropathy; L97.312 Non-pressure chronic ulcer of right ankle with fat layer exposed; Z72.0 Tobacco use | CPT/HCPCS: 15271; 15275; Q4151 ==

== ENCOUNTER 2024-09-05 08:13 | Outpatient (CLI) | payer MEDICARE, BC, SELFPAY | END 2024-09-05 08:14 | disposition home or self-care (01) | LOC: WOUND 08:14 | PROVIDERS: PCP Family Medicine; Visit Provider Nurse Practitioner Family | DX: I87.311 Chronic venous hypertension (idiopathic) with ulcer of right lower extremity (principal); I87.2 Venous insufficiency (chronic) (peripheral); I89.0 Lymphedema, not elsewhere classified; G60.3 Idiopathic progressive neuropathy; L97.312 Non-pressure chronic ulcer of right ankle with fat layer exposed; Z72.0 Tobacco use | CPT/HCPCS: G0463 ==

== ENCOUNTER 2024-09-12 08:15 | Outpatient (CLI) | payer MEDICARE, BC, SELFPAY | END 2024-09-12 08:16 | disposition home or self-care (01) | LOC: WOUND 08:17 | PROVIDERS: PCP Family Medicine; Visit Provider Nurse Practitioner Family | DX: I87.311 Chronic venous hypertension (idiopathic) with ulcer of right lower extremity (principal); I87.2 Venous insufficiency (chronic) (peripheral); I89.0 Lymphedema, not elsewhere classified; G60.3 Idiopathic progressive neuropathy; L97.512 Non-pressure chronic ulcer of other part of right foot with fat layer exposed; Z72.0 Tobacco use | CPT/HCPCS: 15275; Q4151 ==

== ENCOUNTER 2024-09-19 08:03 | Outpatient (CLI) | payer MEDICARE, BC, SELFPAY | END 2024-09-19 08:04 | disposition home or self-care (01) | LOC: WOUND 08:03 | PROVIDERS: PCP Family Medicine; Visit Provider Nurse Practitioner Family | DX: I87.311 Chronic venous hypertension (idiopathic) with ulcer of right lower extremity (principal); I87.2 Venous insufficiency (chronic) (peripheral); G60.3 Idiopathic progressive neuropathy; I89.0 Lymphedema, not elsewhere classified; L97.512 Non-pressure chronic ulcer of other part of right foot with fat layer exposed; Z72.0 Tobacco use | CPT/HCPCS: G0463 ==

== ENCOUNTER 2024-09-26 08:07 | Outpatient (CLI) | payer MEDICARE, BC, SELFPAY | END 2024-09-26 08:08 | disposition home or self-care (01) | LOC: WOUND 08:08 | PROVIDERS: PCP Family Medicine; Visit Provider Nurse Practitioner Family | DX: I70.235 Atherosclerosis of native arteries of right leg with ulceration of other part of foot (principal); I87.2 Venous insufficiency (chronic) (peripheral); I87.311 Chronic venous hypertension (idiopathic) with ulcer of right lower extremity; L97.512 Non-pressure chronic ulcer of other part of right foot with fat layer exposed; G60.3 Idiopathic progressive neuropathy; Z72.0 Tobacco use | CPT/HCPCS: 11042 ==

== ENCOUNTER 2024-10-03 08:03 | Outpatient (CLI) | payer MEDICARE, BC, SELFPAY | END 2024-10-03 08:04 | disposition home or self-care (01) | LOC: WOUND 08:03 | PROVIDERS: PCP Family Medicine; Visit Provider Nurse Practitioner Family | DX: I70.235 Atherosclerosis of native arteries of right leg with ulceration of other part of foot (principal); I87.311 Chronic venous hypertension (idiopathic) with ulcer of right lower extremity; I87.2 Venous insufficiency (chronic) (peripheral); I89.0 Lymphedema, not elsewhere classified; L97.512 Non-pressure chronic ulcer of other part of right foot with fat layer exposed; G60.3 Idiopathic progressive neuropathy | CPT/HCPCS: 11042 ==

== ENCOUNTER 2024-10-10 07:49 | Outpatient (CLI) | payer MEDICARE, BC, SELFPAY | END 2024-10-10 07:50 | disposition home or self-care (01) | LOC: WOUND 07:49 | PROVIDERS: PCP Family Medicine; Visit Provider Nurse Practitioner Family | DX: I70.235 Atherosclerosis of native arteries of right leg with ulceration of other part of foot (principal); I87.311 Chronic venous hypertension (idiopathic) with ulcer of right lower extremity; I87.2 Venous insufficiency (chronic) (peripheral); I89.0 Lymphedema, not elsewhere classified; L97.512 Non-pressure chronic ulcer of other part of right foot with fat layer exposed; Z72.0 Tobacco use | CPT/HCPCS: 11042 ==

== ENCOUNTER 2024-10-17 08:03 | Outpatient (CLI) | payer MEDICARE, BC, SELFPAY | END 2024-10-17 08:04 | disposition home or self-care (01) | LOC: WOUND 08:04 | PROVIDERS: PCP Family Medicine; Visit Provider Nurse Practitioner Family | DX: I70.235 Atherosclerosis of native arteries of right leg with ulceration of other part of foot (principal); I87.2 Venous insufficiency (chronic) (peripheral); I89.0 Lymphedema, not elsewhere classified; L97.512 Non-pressure chronic ulcer of other part of right foot with fat layer exposed; Z72.0 Tobacco use | CPT/HCPCS: 11042 ==

== ENCOUNTER 2024-10-24 08:07 | Outpatient (CLI) | payer MEDICARE, BC, SELFPAY | END 2024-10-24 08:08 | disposition home or self-care (01) | LOC: WOUND 08:08 | PROVIDERS: PCP Family Medicine; Visit Provider Nurse Practitioner Family | DX: I87.311 Chronic venous hypertension (idiopathic) with ulcer of right lower extremity (principal); I87.2 Venous insufficiency (chronic) (peripheral); I70.235 Atherosclerosis of native arteries of right leg with ulceration of other part of foot; I89.0 Lymphedema, not elsewhere classified; L97.512 Non-pressure chronic ulcer of other part of right foot with fat layer exposed; Z72.0 Tobacco use; G60.3 Idiopathic progressive neuropathy | CPT/HCPCS: 11042 ==

== ENCOUNTER 2024-10-31 08:21 | Outpatient (CLI) | payer MEDICARE, BC, SELFPAY | END 2024-10-31 08:22 | disposition home or self-care (01) | LOC: WOUND 08:21 | PROVIDERS: PCP Family Medicine; Visit Provider Nurse Practitioner Family | DX: I70.235 Atherosclerosis of native arteries of right leg with ulceration of other part of foot (principal); I87.311 Chronic venous hypertension (idiopathic) with ulcer of right lower extremity; I87.2 Venous insufficiency (chronic) (peripheral); L97.512 Non-pressure chronic ulcer of other part of right foot with fat layer exposed; Z72.0 Tobacco use; G60.3 Idiopathic progressive neuropathy | CPT/HCPCS: 11042 ==

== ENCOUNTER 2024-11-07 08:40 | Outpatient (CLI) | payer MEDICARE, BC, SELFPAY | END 2024-11-07 08:41 | disposition home or self-care (01) | LOC: WOUND 08:40 | PROVIDERS: PCP Family Medicine; Visit Provider Nurse Practitioner Family | DX: I87.311 Chronic venous hypertension (idiopathic) with ulcer of right lower extremity (principal); I89.0 Lymphedema, not elsewhere classified; I87.2 Venous insufficiency (chronic) (peripheral); L97.512 Non-pressure chronic ulcer of other part of right foot with fat layer exposed; G60.3 Idiopathic progressive neuropathy; Z72.0 Tobacco use | CPT/HCPCS: 11042 ==

== ENCOUNTER 2024-11-14 08:07 | Outpatient (CLI) | payer MEDICARE, BC, SELFPAY | END 2024-11-14 08:08 | disposition home or self-care (01) | LOC: WOUND 08:07 | PROVIDERS: PCP Family Medicine; Visit Provider Nurse Practitioner Family | DX: I87.311 Chronic venous hypertension (idiopathic) with ulcer of right lower extremity (principal); I89.0 Lymphedema, not elsewhere classified; I87.2 Venous insufficiency (chronic) (peripheral); L97.512 Non-pressure chronic ulcer of other part of right foot with fat layer exposed; G60.3 Idiopathic progressive neuropathy; Z72.0 Tobacco use | CPT/HCPCS: 11042 ==

== ENCOUNTER 2024-11-21 08:07 | Outpatient (CLI) | payer MEDICARE, BC, SELFPAY | END 2024-11-21 08:08 | disposition home or self-care (01) | LOC: WOUND 08:07 | PROVIDERS: PCP Family Medicine; Visit Provider Nurse Practitioner Family | DX: I87.311 Chronic venous hypertension (idiopathic) with ulcer of right lower extremity (principal); I89.0 Lymphedema, not elsewhere classified; I87.2 Venous insufficiency (chronic) (peripheral); L97.512 Non-pressure chronic ulcer of other part of right foot with fat layer exposed; G60.3 Idiopathic progressive neuropathy; Z72.0 Tobacco use | CPT/HCPCS: 11042 ==

== ENCOUNTER 2024-11-28 08:07 | Outpatient (CLI) | payer MEDICARE, BC, SELFPAY | END 2024-11-28 08:08 | disposition home or self-care (01) | LOC: WOUND 08:08 | PROVIDERS: PCP Family Medicine; Visit Provider Nurse Practitioner Family | DX: I87.311 Chronic venous hypertension (idiopathic) with ulcer of right lower extremity (principal); I89.0 Lymphedema, not elsewhere classified; I87.2 Venous insufficiency (chronic) (peripheral); L97.512 Non-pressure chronic ulcer of other part of right foot with fat layer exposed; G60.3 Idiopathic progressive neuropathy; Z72.0 Tobacco use | CPT/HCPCS: 11042 ==

== ENCOUNTER 2024-12-05 08:07 | Outpatient (CLI) | payer MEDICARE, BC, SELFPAY | END 2024-12-05 08:08 | disposition home or self-care (01) | LOC: WOUND 08:09 | PROVIDERS: PCP Family Medicine; Visit Provider Nurse Practitioner Family | DX: I87.311 Chronic venous hypertension (idiopathic) with ulcer of right lower extremity (principal); I89.0 Lymphedema, not elsewhere classified; I87.2 Venous insufficiency (chronic) (peripheral); L97.512 Non-pressure chronic ulcer of other part of right foot with fat layer exposed; G60.3 Idiopathic progressive neuropathy; Z72.0 Tobacco use | CPT/HCPCS: 11042 ==

== ENCOUNTER 2024-12-19 08:00 | Outpatient (CLI) | payer MEDICARE, BC, SELFPAY | END 2024-12-19 08:01 | disposition home or self-care (01) | LOC: WOUND 08:00 | PROVIDERS: PCP Family Medicine; Visit Provider Nurse Practitioner Family | DX: I87.311 Chronic venous hypertension (idiopathic) with ulcer of right lower extremity (principal); I89.0 Lymphedema, not elsewhere classified; I87.2 Venous insufficiency (chronic) (peripheral); L97.512 Non-pressure chronic ulcer of other part of right foot with fat layer exposed; G60.3 Idiopathic progressive neuropathy; Z72.0 Tobacco use | CPT/HCPCS: 11042 ==

== ENCOUNTER 2024-12-26 08:08 | Outpatient (CLI) | payer MEDICARE, BC, SELFPAY | END 2024-12-26 08:09 | disposition home or self-care (01) | LOC: WOUND 08:08 | PROVIDERS: PCP Family Medicine; Visit Provider Nurse Practitioner Family | DX: I70.235 Atherosclerosis of native arteries of right leg with ulceration of other part of foot (principal); I87.2 Venous insufficiency (chronic) (peripheral); I89.0 Lymphedema, not elsewhere classified; G60.3 Idiopathic progressive neuropathy; L97.512 Non-pressure chronic ulcer of other part of right foot with fat layer exposed; Z72.0 Tobacco use | CPT/HCPCS: 11042 ==

== ENCOUNTER 2025-01-02 07:58 | Outpatient (CLI) | payer MEDICARE, BC, SELFPAY | END 2025-01-02 07:59 | disposition home or self-care (01) | LOC: WOUND 07:58 | PROVIDERS: PCP Family Medicine; Visit Provider Nurse Practitioner Family | DX: I70.235 Atherosclerosis of native arteries of right leg with ulceration of other part of foot (principal); I87.2 Venous insufficiency (chronic) (peripheral); I89.0 Lymphedema, not elsewhere classified; G60.3 Idiopathic progressive neuropathy; L97.512 Non-pressure chronic ulcer of other part of right foot with fat layer exposed; Z72.0 Tobacco use | CPT/HCPCS: 11042 ==

== ENCOUNTER 2025-01-09 07:57 | Outpatient (CLI) | payer MEDICARE, BC, SELFPAY | END 2025-01-09 07:58 | disposition home or self-care (01) | LOC: WOUND 07:58 | PROVIDERS: PCP Family Medicine; Visit Provider Nurse Practitioner Family | DX: I70.235 Atherosclerosis of native arteries of right leg with ulceration of other part of foot (principal); I87.311 Chronic venous hypertension (idiopathic) with ulcer of right lower extremity; I87.2 Venous insufficiency (chronic) (peripheral); I89.0 Lymphedema, not elsewhere classified; L97.512 Non-pressure chronic ulcer of other part of right foot with fat layer exposed; G60.3 Idiopathic progressive neuropathy; Z72.0 Tobacco use | CPT/HCPCS: 97597 ==